=== PATIENT | female | born 1975 | race African-American/Black ===

== ENCOUNTER 2018-02-08 00:14 | Emergency (ER) | payer SELFPAY ==
[~2018-02-08] VITALS: Ht 160 cm; Wt 81.8 kg
[~2018-02-08 00:14] MED LIST: AMLODIPINE BESY10 MG PO; DEPAKOTE ER500 MG PO; DIVALPROEX SOD500 MG PO; GLUCOPHAGE500 MG PO; HYDROCHLOROTHIA25 MG PO; LISINOPRIL20 MG PO; NAPROXEN250 MG PO; NORVASC10 MG PO; NORVASC5 MG PO; ZESTORETIC 10-1 EAC1 PO; ZYPREXA10 MG PO
[2018-02-08 03:17] VITALS: BP 00/00
== END 2018-02-08 03:18 | disposition home or self-care (01) ==
LOC: EME 00:14
DX: F31.32 Bipolar disorder, current episode depressed, moderate (principal); F60.3 Borderline personality disorder; Z59.0 Homelessness; E11.9 Type 2 diabetes mellitus without complications; I10 Essential (primary) hypertension; Z88.5 Allergy status to narcotic agent
CPT/HCPCS: 90839; 99281; 99285

== ENCOUNTER 2018-02-27 05:15 | Inpatient (IN) | payer SELFPAY ==
[~2018-02-27] VITALS: Ht 160 cm; Wt 82.7 kg
[2018-02-27 06:38] LABS: HEMOGLOBIN 13.7 G/DL (11.9-15.5); MCH 27.2 PG (29.0-34.0); MCV 73.4 FL (83-99); PLATELET COUNT 286 K/uL (156-360); RBC DIS.WIDTH-CV 14.5 % (11.8-14.6); RBC DIS.WIDTH-SD 38.5 % (39-53); RED BLOOD COUNT 5.04 M/uL (3.80-5.20); WHITE BLOOD COUNT 4.8 K/uL (4.1-10.2)
[2018-02-27 07:16] LABS: APPEARANCE SL.HAZY ((CLEAR)); BILIRUBIN NEGATIVE; BLOOD NEGATIVE; COLOR YELLOW ((YELLOW)); GLUCOSE (STRIP) NEGATIVE; KETONES NEGATIVE; LEUKOCYTES NEGATIVE; NITRITE NEGATIVE; PROTEIN (STRIP) 100; SPECIFIC GRAVITY 1.018 (1.000-1.030); UROBILINOGEN 0.2 MG/DL (0.2-1.0)
[2018-02-27 07:24] LABS: BACTERIA RARE /HPF; EPITHELIAL CELLS 1+ /HPF; MUCUS TRACE /LPF; RED BLOOD CELLS 0-5 /HPF (0-5); UCUL ADDED? NO; WHITE BLOOD CELLS 0-5 /HPF (0-5)
[2018-02-27 07:37] LABS: CHLORIDE 107 MEQ/L (99-109); POTASSIUM 3.6 MEQ/L (3.7-5.4); SODIUM 140 MEQ/L (136-147)
[2018-02-27 07:41] LABS: QUANTITATIVE HCG < 4.0 MIU/ML
[2018-02-27 07:55] LABS: AMPHETAMINE NEGATIVE (500 ng/mL); BARBITURATES NEGATIVE (200 ng/mL); BENZODIAZEPINES NEGATIVE (150 ng/mL); BUPRENORPHINE NEGATIVE (10 ng/mL); COCAINE NEGATIVE (150 ng/mL); METHADONE NEGATIVE (200 ng/mL); METHAMPHETAMINE NEGATIVE (500 ng/mL); OPIATES (MORPHINE) NEGATIVE (100 ng/mL); OXYCODONE NEGATIVE (100 ng/mL); PHENCYCLIDINE NEGATIVE (25 ng/mL); PROPOXYPHENE NEGATIVE (300 ng/mL); THC CANNABINOIDS NEGATIVE (50 ng/mL); TRICYCLIC ANTIDEPRESSANTS NEGATIVE (300 ng/mL)
[2018-02-27 08:01] LABS: CREATININE 0.9 MG/DL (0.6-1.3); GFR ESTIMATE (CALCULATED) > 59 mL/min/; GLUCOSE 89 mg/dL (70-99); SERUM ETHYL ALCOHOL < 10 mg/dL; UREA NITROGEN (BUN) 23 mg/dL (9-23)
[2018-02-27 12:46] VITALS: BP 188/97
[2018-02-27 13:32] VITALS: BP 188/97
[2018-02-27 15:43] VITALS: BP 158/84
[2018-02-27 18:17] VITALS: BP 141/83
[2018-02-28 07:53] VITALS: BP 179/93
[2018-02-28 12:03] VITALS: BP 140/79
[2018-02-28 15:54] VITALS: BP 164/103
[2018-02-28 19:45] VITALS: BP 196/102
[2018-03-01 01:33] VITALS: BP 144/95
[2018-03-01 07:54] VITALS: BP 131/94
[2018-03-01 15:30] VITALS: BP 171/99
[2018-03-01 18:33] VITALS: BP 151/82
[2018-03-02 07:34] VITALS: BP 177/107
[2018-03-02 15:49] VITALS: BP 182/101
[2018-03-02 18:36] VITALS: BP 180/105
[2018-03-03 07:37] VITALS: BP 156/84
[2018-03-03 10:52] VITALS: BP 139/83
[2018-03-03 16:06] VITALS: BP 150/90
[2018-03-03 18:30] VITALS: BP 175/97
[2018-03-04 08:13] VITALS: BP 182/111
[2018-03-04 11:17] LABS: ALBUMIN 4.2 G/DL (3.2-4.8); ALKALINE PHOSPHATASE 37 IU/L (3-129); ALT (GPT) 9 IU/L (3-49); AST (GOT) 11 IU/L (2-34); DIRECT BILIRUBIN 0.1 mg/dL (0.0-0.3); TOTAL BILIRUBIN 0.5 MG/DL (0.0-1.0); TOTAL PROTEIN 6.6 G/DL (6.4-8.3)
[2018-03-04 11:25] LABS: THYROTROPIN (TSH) 0.83 MIU/L (0.4-5.5)
[2018-03-04 15:43] VITALS: BP 121/75
[2018-03-04 17:15] LABS: UR CREATININE CONCENTRATION 93.2 MG/DL
[2018-03-04 18:36] VITALS: BP 129/71
[2018-03-05 08:11] VITALS: BP 136/103
[2018-03-05 11:46] VITALS: BP 161/92
[2018-03-05 15:46] VITALS: BP 132/75
[2018-03-06 04:18] VITALS: BP 187/113
[2018-03-06 07:37] VITALS: BP 173/107
[2018-03-06 15:49] VITALS: BP 179/98
[2018-03-07 07:47] VITALS: BP 190/106
[2018-03-07 15:41] VITALS: BP 199/108
[2018-03-08 09:31] VITALS: BP 196/124
[2018-03-08 15:54] VITALS: BP 153/96
[2018-03-09 09:55] VITALS: BP 187/129
[2018-03-09 12:04] VITALS: BP 178/104
[2018-03-09 16:30] VITALS: BP 190/110
[2018-03-09 19:30] VITALS: BP 178/100
[2018-03-10 08:39] VITALS: BP 173/104
[2018-03-11 07:53] VITALS: BP 196/122
[2018-03-12 07:52] VITALS: BP 174/94
[2018-03-12 11:24] VITALS: BP 161/111
[2018-03-13 16:06] VITALS: BP 163/105
[2018-03-14 16:08] VITALS: BP 149/93
[2018-03-14 19:54] VITALS: BP 183/106
[2018-03-15 07:59] VITALS: BP 145/95
[2018-03-15] MEDS ORDERED: APRESOLINE10 MG PO (09:44)
[2018-03-15] MEDS ORDERED: AMLODIPINE BESY10 MG PO (09:44)
[2018-03-15] MEDS ORDERED: HYDROCHLOROTHIA25 MG PO (09:44)
[2018-03-15] MEDS ORDERED: DIVALPROEX SOD500 M1 PO (09:44)
== END 2018-03-15 10:47 | disposition home or self-care (01) | DRG 885 ==
LOC: EME 05:15 → 1WEST 08:56 → EDOF 08:56 → ENRESERV 12:00 → 1WEST 12:23
PROVIDERS: Emergency Medicine; Internal Medicine
DX: F31.4 Bipolar disorder, current episode depressed, severe, without psychotic features (principal); I10 Essential (primary) hypertension; Z91.14 Patient's other noncompliance with medication regimen; F20.9 Schizophrenia, unspecified; K59.00 Constipation, unspecified; R60.0 Localized edema; R00.0 Tachycardia, unspecified; E11.9 Type 2 diabetes mellitus without complications; F43.10 Post-traumatic stress disorder, unspecified; Z59.0 Homelessness; Z56.0 Unemployment, unspecified; Z79.899 Other long term (current) drug therapy
CPT/HCPCS: 80048; 80076; 80178; 81003; 82570; 83880; 84156; 84443; 84702; 85027; 90839; 93970; 97150 GO; 97165 GO; 99281; 99285; G0480; J1630

== ENCOUNTER 2018-04-24 01:17 | Emergency (ER) | payer SELFPAY ==
[~2018-04-24] VITALS: Ht 160 cm; Wt 81.7 kg
[~2018-04-24 01:17] MED LIST changes: +APRESOLINE10 MG PO; +DIVALPROEX SOD500 M1 PO
[2018-04-24 06:13] VITALS: BP 207/134
== END 2018-04-24 06:19 | disposition home or self-care (01) ==
LOC: EME 01:17
DX: M25.571 Pain in right ankle and joints of right foot (principal); M25.572 Pain in left ankle and joints of left foot; R51 Headache; I10 Essential (primary) hypertension; F32.9 Major depressive disorder, single episode, unspecified; E11.9 Type 2 diabetes mellitus without complications
CPT/HCPCS: 70450; 73610; 90839; 99281; 99285